=== PATIENT | male | born 1990 ===

== ENCOUNTER 2016-09-21 01:39 | Emergency (ER) | payer MEDICAID ==
--- NOTE | 2016-09-21 02:44 | C.PDOC ---
History Of Present Illness <Gurjit Pino - Last Filed: 09/21/16 06:56> <Madiha Perez - Last Filed: 09/21/16 09:58> Patient is a 25 year old male who presents to the ER with a complaint of multiple episodes of suicidal ideation. Patient states his last suicidal ideation episode was one week ago. Patient reports he occasionally uses marijuana. Patient currently denies any suicidal or homicidal ideation. (PinoMichelleethel Ludwig) History Per: Patient History/Exam Limitations: no limitations Onset/Duration Of Symptoms: Days (Multiple episodes, last episode one week ago.) Current Symptoms Are (Timing): Gone (Currently no suicidal or homicidal ideations) Suicide/Self Injury Attempted (Context): None <Gurjit Pino - Last Filed: 09/21/16 06:56> <Madiha Perez - Last Filed: 09/21/16 09:58> Time Seen by Provider: 09/21/16 02:36 Chief Complaint (Nursing): Psychiatric Evaluation Past Medical History Reviewed: Historical Data, Nursing Documentation, Vital Signs - Medical History PMH: Anxiety, Asthma (ON NO MEDS), Bipolar Disorder, Depression, Post Traumatic Stress Disorder Family History: States: Unknown Family Hx, Diabetes - Social History Hx Tobacco Use: Yes Hx Alcohol Use: No Hx Substance Use: No - Immunization History Hx Tetanus Toxoid Vaccination: Yes Hx Influenza Vaccination: Yes Hx Pneumococcal Vaccination: No <Gurjit Pino - Last Filed: 09/21/16 06:56> Vital Signs: Last Vital Signs Temp 97.5 F L 09/21/16 07:43 Pulse 48 L 09/21/16 07:43 Resp 20 09/21/16 07:43 BP 146/76 09/21/16 07:43 Pulse Ox 95 09/21/16 07:43 Review Of Systems Except As Marked, All Systems Reviewed And Found Negative. Constitutional: Negative for: Fever, Chills Gastrointestinal: Negative for: Nausea, Vomiting Neurological: Negative for: Headache Psych: Negative for: Suicidal ideation (currently no suicidal or homicidal ideation) <Gurjit Pino - Last Filed: 09/21/16 06:56> Physical Exam - Physical Exam Appears: Well, Non-toxic Skin: Normal Color, Warm, Dry Head: Atraumatic, Normacephalic Eye(s): bilateral: Normal Inspection Oral Mucosa: Moist Chest: Symmetrical Cardiovascular: Rhythm Regular Respiratory: Normal Breath Sounds, No Accessory Muscle Use, No Rales, No Rhonchi , No Wheezing Neurological/Psych: Oriented x3, Normal Speech, Normal Cognition <Gurjit Pino - Last Filed: 09/21/16 06:56> ED Course And Treatment - Laboratory Results Result Diagrams: 09/21/16 02:45 09/21/16 02:45 ECG: Interpreted By Me, Viewed By Me ECG Rhythm: Sinus Bradycardia ECG Interpretation: No Acute Changes Interpretation Of ECG: Sinus bradycardia, IRBBB, no acute change, borderline tracings. Rate From EC O2 Sat by Pulse Oximetry: 97 (Room air) Pulse Ox Interpretation: Normal - Radiology CXR: Interpreted by Me, Viewed By Me CXR Interpretation: Yes: No Acute Disease, Other (normal CXR). No: Infiltrates Progress Note: Blood work ordered. Reevaluation Time: 06:00 (mediclly cleared for crisis eval.) <Gurjit Pino - Last Filed: 09/21/16 06:56> - Laboratory Results Result Diagrams: 09/21/16 02:45 09/21/16 02:45 <Madiha Perez - Last Filed: 09/21/16 09:58> Progress <Gurjit Pino - Last Filed: 09/21/16 06:56> - Data Reviewed Data Reviewed: Lab - Continuity of Care Discussed pt. case with technology sales consultant/specialty: Psychiatry <Madiha Perez - Last Filed: 09/21/16 09:58> - Re-Evaluation Re-evaluation Note: 09/21/16 07:55 PENDING MED CLEAR FROM [facility] FOR EVENTUAL TRANSFER PER CRISIS. ACCEPTED DR STOREY. NAD APPEARS COMFORTABLE (Madiha Perez) Disposition <Gurjit Pino - Last Filed: 09/21/16 06:56> Discussed With : [place] Doctor Will See Patient In The: Hospital ([facility]) Counseled Patient/Family Regarding: Studies Performed, Diagnosis - Disposition Disposition Time: 09:57 - POA Present On Arrival: None <Madiha Perez - Last Filed: 09/21/16 09:58> - Disposition Disposition: Trans to Other Acute Care Hosp Condition: STABLE - Clinical Impression Clinical Impression: Acute depression - Scribe Statement The provider has reviewed the documentation as recorded by the Scribe <Gurjit Pino - Last Filed: 09/21/16 06:56> <Madiha Perez - Last Filed: 09/21/16 09:58> - Gabriele Statement Trevor Khan All medical record entries made by the Gabriele were at my direction and personally dictated by me. I have reviewed the chart and agree that the record accurately reflects my personal performance of the history, physical exam, medical decision making, and the department course for this patient. I have also personally directed, reviewed, and agree with the discharge instructions and disposition. (Gurjit Pino)
[2016-09-21 02:48] LABS: BASO % 0.4 % (0.0-2.0); EOS # 0.2 K/uL (0.0-0.7); EOS % 2.1 % (0.0-4.0); LYMPH # 2.2 K/uL (1.0-4.3); MEAN CORPUSCULAR HEMOGLOBIN 28.7 pg (27.0-31.0); MEAN CORPUSCULAR HGB CONC 34.2 g/dL (33.0-37.0); MEAN PLATELET VOLUME 8.9 fL (7.2-11.7); MONO # 0.6 K/uL (0.0-0.8); MONO % 6.5 % (0.0-10.0); NRBC % 0.1 % (0.0-2.0); RED CELL DISTRIBUTION WIDTH 14.1 % (11.5-14.5); WHITE BLOOD COUNT 9.3 K/uL (4.8-10.8)
[2016-09-21 02:52] LABS: RBC URINE < 1 /hpf (0-3); URINE BILIRUBIN NEGATIVE (NEGATIVE); URINE BLOOD NEGATIVE (NEGATIVE); URINE COLOR Yellow (YELLOW); URINE GLUCOSE (UA) NORMAL (Normal); URINE KETONE NEGATIVE (NEGATIVE); URINE LEUKOCYTE ESTERASE NEG Leu/uL (Negative); URINE PROTEIN NEGATIVE (NEGATIVE); WBC URINE < 1 /hpf (0-5)
[2016-09-21 02:56] LABS: CHLORIDE 99 mmol/L (98-107); POTASSIUM 3.7 mmol/L (3.6-5.2); SODIUM 140 mmol/L (132-148)
[2016-09-21 02:58] LABS: ALB/GLOB RATIO 1.3 (1.0-2.1); ALKALINE PHOSPHATASE 81 U/L (38-126); AST/SGOT 71 U/L (17-59); BILIRUBIN,TOTAL 0.6 mg/dL (0.2-1.3); CARBON DIOXIDE 29 mmol/L (22-30); GFR AFRICAN-AMERICAN > 60; TOTAL PROTEIN 8.1 g/dL (6.3-8.3)
[2016-09-21 02:59] LABS: ALCOHOL SERUM < 10 mg/dl (0-10); ALT/SGPT 56 U/L (21-72); BLOOD UREA NITROGEN 14 mg/dL (9-20); GLUCOSE,RANDOM 88 mg/dL (75-110)
--- NOTE | 2016-09-21 09:20 | RAD ---
HISTORY: crisis clearance COMPARISON: No prior. TECHNIQUE: Chest PA and lateral FINDINGS: LUNGS: No active pulmonary disease. PLEURA: No significant pleural effusion identified. No pneumothorax apparent. CARDIOVASCULAR: Normal. OSSEOUS STRUCTURES: No significant abnormalities. VISUALIZED UPPER ABDOMEN: Normal. OTHER FINDINGS: None. IMPRESSION: No active disease.
[2016-09-21 11:30] VITALS: BP 132/76; PULSE 61; RESP 18; TEMP 98.9; O2SAT 98
--- NOTE | 2016-09-22 20:25 | CARD ---
APPROVED REPORT EKG Measurement Heart [id number] <Conclusion> Sinus bradycardia RSR' or QR pattern in V1 suggests right ventricular conduction delay Borderline ECG
== END 2016-09-21 11:38 | disposition short-term general hospital (02) ==
LOC: C.ER 01:39
DX: F32.9 Major depressive disorder, single episode, unspecified (principal)